=== PATIENT | male | born 1940 | race Two or more races ===

== ENCOUNTER → 2024-12-07 | Outpatient (CLI) | payer OTHER, MEDICAID, SELFPAY ==
[2024-12-07 08:10] LABS: Collection Type, Urine Clean Catch
[2024-12-07 08:36] LABS: Bilirubin,Urine Negative (Negative); Blood,Urine Negative (Negative); Clarity,Urine Clear (Clear/Hazy); Color,Urine Yellow (Lt Yel-Yel); Glucose, Urine Negative (Negative); Ketones,Urine Negative (Negative); Leukocyte Esterase,Urine Negative (Negative); Nitrite,Urine Negative (Negative); PH,Urine 6.5 (5.0-7.0); Protein,Urine Negative (Neg - Trace); RBC,Urine 1 /hpf (0-3); Specific Gravity,Urine 1.015 (1.001-1.035); Squamous Epithelial Cell,Urine < 1 /hpf (0-5); Urobilinogen,Urine Negative mg/dL (0.0-1.0); WBC,Urine 4 /hpf (0-5)
[2024-12-07 08:43] LABS: Alanine Aminotransferase 39 U/L (10-49); Albumin, Serum 4.1 gm/dL (3.4-4.8); Albumin/Globulin Ratio 1.5 (1.2-2.2); Alkaline Phosphatase 93 U/L (46-116); Anion Gap 9 (7-16); Aspartate Amino Transferase 35 U/L (0-34); BUN/Creatinine Ratio 9 Ratio (12-20); Bilirubin,Total 1.1 mg/dL (0.3-1.2); Blood Urea Nitrogen 9 mg/dL (9-23); Calcium 8.8 mg/dL (8.3-10.6); Calcium (Corrected) 8.8 mg/dL (8.5-10.1); Carbon Dioxide 27.3 mMol/L (20.0-31.0); Cardiac Risk Estimate 3.3 RATIO (4.0-6.7); Chloride 106 mMol/L (98-107); Cholesterol 124 mg/dL (132-200); Globulin 2.8 gm/dL (2.3-3.5); Glucose 132 mg/dL (74-106); HDL Cholesterol 38 mg/dL (40-60); LDL Cholesterol,Calculated 51 mg/dL (0-130); Osmolality,Calculated 283 (275-295); Potassium 4.1 mMol/L (3.4-5.1); Sodium 142 mMol/L (136-145); Thyroid Stimulating Hormone 1.15 uIU/mL (0.55-4.78); Total Protein 6.9 gm/dL (5.7-8.2); Triglycerides 173 mg/dL (30-150); eGFR > 60 See Note
[2024-12-07 08:44] LABS: Basophils % (Auto) 1 % (0-2.5); Eosinophils # (Auto) 0.3 Thou/mm3 (0.0-0.5); Eosinophils % (Auto) 5 % (0-10); Hematocrit 47.8 % (41.0-53.0); Hemoglobin 16.9 g/dL (13.5-16.0); Immature Granulocytes % (Auto) 0 % (0-0); Immature Granulocytes Auto 0.01 Thou/mm3 (0.00-0.00); Lymphocytes # (Auto) 1.8 Thou/mm3 (1.0-4.8); Lymphocytes % (Auto) 24 % (10-50); Mean Corpuscular HGB Conc 35.4 g/dl (31.0-37.0); Mean Corpuscular Volume 93 fL (80-100); Monocytes # (Auto) 0.7 Thou/mm3 (0.0-0.8); Monocytes % (Auto) 9 % (0-12); Neutrophils # (Auto) 4.6 Thou/mm3 (1.8-7.7); Neutrophils % (Auto) 61 % (37-80); Nucleated Red Blood Cell % 0 /100 WBC (0); Platelet Count 160 Thou/mm3 (140-440); RDW Standard Deviation 40.4 fL (35.1-43.9); Red Blood Count 5.12 Miln/mm3 (4.50-5.90); White Blood Count 7.4 Thou/mm3 (3.8-10.6)
[2024-12-07 08:44] LABS: Creatinine MALB Rnd Ur 159 mg/dL (30-125); Microalbumin Creat Ratio 2 mg/gCrea (<30); Microalbumin, Random Urine 3 mg/L (0-300)
[2024-12-07 08:56] LABS: Glucose Estimated Average 131 mg/dL (80-131); Hemoglobin A1C 6.2 % Hgb (4.8-6.0)
== END | disposition home or self-care (01) ==
PROVIDERS: PCP Family Medicine; Referring Provider Family Medicine; Visit Provider Family Medicine
DX: Z00.00 Encounter for general adult medical examination without abnormal findings (principal); E11.9 Type 2 diabetes mellitus without complications; K70.0 Alcoholic fatty liver; E78.2 Mixed hyperlipidemia
CPT/HCPCS: 36415; 80053; 80061; 81001; 82043; 82570; 83036; 84443; 85025

== ENCOUNTER 2024-12-15 09:35 | Emergency (ER) | payer OTHER, MEDICAID, SELFPAY ==
[2024-12-15 10:30] VITALS: BP 159/80; PULSE 93; RESP 16; TEMP 37.3; O2SAT 95; BMI 27.3
--- NOTE | 2024-12-15 10:43 | PD.EDRME ---
Rapid Medical Screening Exam RME Arrival date/time: 12/15/24 09:35 This is an 84-year-old male that comes in with complaints of difficulty urinating. Patient has urinary frequency, urgency, dysuria and oliguria. Patient states has been going on for a couple weeks now. Patient has a history of BPH hyperlipidemia. I have greeted and performed a focused initial assessment of this patient. Initial appropriate labs ordered at this time. A comprehensive ED assessment and evaluation of the patient and analysis of all test and completion of medical decision making process will be conducted by additional ED provider. Chief Complaint: Urogenital-Male Time Seen by Provider: 12/15/24 09:57 Vital signs: Vital Signs Temperature 99.2 F 12/15/24 10:30 Pulse Rate 93 12/15/24 10:30 Respiratory Rate 16 12/15/24 10:30 Blood Pressure 159/80 H 12/15/24 10:30 Pulse Oximetry (%) 95 12/15/24 10:30 Oxygen Delivery Method Room Air 12/15/24 10:30
[2024-12-15 11:11] LABS: Basophils % (Auto) 0 % (0-2.5); Eosinophils # (Auto) 0.2 Thou/mm3 (0.0-0.5); Eosinophils % (Auto) 2 % (0-10); Hematocrit 44.7 % (41.0-53.0); Hemoglobin 15.9 g/dL (13.5-16.0); Immature Granulocytes % (Auto) 0 % (0-0); Immature Granulocytes Auto 0.01 Thou/mm3 (0.00-0.00); Lymphocytes # (Auto) 1.3 Thou/mm3 (1.0-4.8); Lymphocytes % (Auto) 14 % (10-50); Mean Corpuscular HGB Conc 35.6 g/dl (31.0-37.0); Mean Corpuscular Volume 93 fL (80-100); Monocytes # (Auto) 0.9 Thou/mm3 (0.0-0.8); Monocytes % (Auto) 11 % (0-12); Neutrophils # (Auto) 6.5 Thou/mm3 (1.8-7.7); Neutrophils % (Auto) 73 % (37-80); Nucleated Red Blood Cell % 0 /100 WBC (0); Platelet Count 151 Thou/mm3 (140-440); Red Blood Count 4.82 Miln/mm3 (4.50-5.90)
[2024-12-15 11:29] LABS: Alanine Aminotransferase 35 U/L (10-49); Albumin, Serum 4.2 gm/dL (3.4-4.8); Albumin/Globulin Ratio 1.3 (1.2-2.2); Alkaline Phosphatase 103 U/L (46-116); Anion Gap 9 (7-16); Aspartate Amino Transferase 36 U/L (0-34); BUN/Creatinine Ratio 9 Ratio (12-20); Bilirubin,Total 1.1 mg/dL (0.3-1.2); Blood Urea Nitrogen 9 mg/dL (9-23); Calcium 8.8 mg/dL (8.3-10.6); Calcium (Corrected) 8.8 mg/dL (8.5-10.1); Carbon Dioxide 25.6 mMol/L (20.0-31.0); Chloride 103 mMol/L (98-107); Estimated Creatinine Clearance 51.9 mL/min (>60); Globulin 3.2 gm/dL (2.3-3.5); Glucose 179 mg/dL (74-106); Osmolality,Calculated 278 (275-295); Potassium 4.2 mMol/L (3.4-5.1); Sodium 138 mMol/L (136-145); Total Protein 7.4 gm/dL (5.7-8.2); eGFR > 60 See Note
[2024-12-15 11:58] VITALS: BP 154/81; PULSE 88; RESP 20; TEMP 37.4; O2SAT 93
--- NOTE | 2024-12-15 12:35 | PD.EDMALE ---
ED Male Genitalurinary RME/HPI General Chief complaint: Urogenital-Male Stated complaint: PAIN IN PENIS AND CAN'T PEE Time Seen by Provider: 12/15/24 09:57 Arrival date/time: 12/15/24 09:35 RME / HPI RME / HPI Narrative: 84-year-old male patient with significant history of enlarged prostate, was brought in by family for evaluation regarding dysuria and dribbling. Also complaining of painful sensation in the penis. This been ongoing for the last several weeks, getting worse. Denies any fever denies any vomiting denies any other complaints. Family is not sure if patient is taking his Flomax and terazosin daily. Related Data Home Medications ?Medication ?Instructions ?Recorded ?Confirmed atorvastatin 10 mg tablet 10 mg PO HS 03/27/21 07/21/22 pantoprazole 40 mg tablet,delayed 40 mg PO QDAY 03/27/21 07/21/22 release terazosin 2 mg capsule 4 mg PO QDAY 03/27/21 07/21/22 duloxetine 20 mg capsule,delayed 30 mg PO DAILY 04/02/21 07/21/22 release sprinkle celecoxib 200 mg capsule 200 mg PO DAILY PRN Back Pain 09/09/21 07/21/22 tamsulosin 0.4 mg capsule 0.4 mg PO QDAY 09/09/21 07/21/22 Previous Rx's ?Medication ?Instructions ?Recorded ibuprofen 600 mg tablet 600 mg PO TID PRN pain #30 tabs 01/02/23 diphenhydramine HCl 25 mg capsule 25 mg PO TID PRN Tardive 03/10/24 (Benadryl) dyskinesia symptoms #20 caps scopolamine base 1 mg over 3 days 1 mg topical .Q3days PRN dizziness 03/10/24 transdermal patch #4 ea meclizine 25 mg tablet 25 mg PO QID PRN dizziness #20 tabs 06/14/24 Allergies Allergy/AdvReac Type Severity Reaction Status Date / Time No Known Allergies Allergy Verified 12/15/24 09:37 Review of Systems Review of Systems Narrative Review of Systems: Review of system reviewed and within normal limits except mentioned in HPI ED Exam Narrative Physical exam: VITAL SIGNS: Reviewed. GENERAL APPEARANCE: Alert and interactive, follows commands, no acute distress, HEAD AND FACE: Non-traumatic. ENT: PERRL, pink conjunctivitis, eyelid no trauma, Mucous membrane moist. NECK: Supple, nontender, no nuchal rigidity. CHEST: No tenderness, no crepitus, no paradoxical movement, no retractions. LUNGS: Clear, well ventilated, symmetric, no rales, no wheezing, no ronchi, no stridor, good breath sounds bilaterally. HEART: Regular rate, regular rhythm, no murmur, no gallops. ABDOMEN: Soft, positive bowel sounds, nondistended, no guarding, nontender, no rebound, no masses, RECTAL: Deferred. GENITAL: Deferred. NEUROLOGICAL: Gross motor function intact sensory function intact, Appropriate for age. MUSCULOSKELETAL: low back nontender, full range of motion. EXTREMITIES: Nontender, full range of motion. SKIN: Color pink, dry, no rash, no lacerations, no abrasions, no contusions. LYMPHATICS: Deferred. Course Quality Measures none Orders Category Date Time Status Catheter [Urinary Catheter] QS Care 12/15/24 13:59 Active Giles to [place] Routine Care 12/15/24 12:34 Ordered Giles to Leg Bag Routine Care 12/15/24 12:34 Ordered CBC Stat Lab 12/15/24 11:01 Completed Comprehensive Metabolic Panel Stat Lab 12/15/24 11:01 Completed PSA [Prostate Specific Antigen] Stat Lab 12/15/24 11:01 Completed Urinalysis, C/S if Indicated Stat Lab 12/15/24 12:37 Completed ACETAMINOPHEN w/COD 300-30 [Tylenol w/Cod #3] Med 12/15/24 12:34 Discontinued 1 tab PO X1 ONE Vital Signs Vital signs: Vital Signs Temperature 99.2 F 12/15/24 10:30 Pulse Rate 93 12/15/24 10:30 Respiratory Rate 16 12/15/24 10:30 Blood Pressure 159/80 H 12/15/24 10:30 Pulse Oximetry (%) 95 12/15/24 10:30 Oxygen Delivery Method Room Air 12/15/24 10:30 Urogenital - Male MDM Narrative MDM Narrative:: 84-year-old male patient with significant history of enlarged prostate, was brought in by family for evaluation regarding dysuria and dribbling. Also complaining of painful sensation in the penis. This been ongoing for the last several weeks, getting worse. Denies any fever denies any vomiting denies any other complaints. Family is not sure if patient is taking his Flomax and terazosin daily. Giles catheter was inserted without any difficulty. Laboratory workup unremarkable no UTI except for PAC that is elevated at 144 Results discussed with the patient and family, advised him to closely follow-up with PCP and for referral to urologist in 1 to 2 days due to significantly elevated,which could be secondary to malignancy Patient data External records reviewed:: None Clinical information provided by:: patient and family Social determinants that could affect healthcare access:: none Patient has the following chronic illnesses:: History of BPH, How is presenting disease/condition affected by chronic disease/condition?: exacerbated by Evaluation data The following diagnostics were reviewed and interpreted by me:: lab results Lab and/or radiology exams considered but not ordered:: None Interpretation Summary: See results in MDM Medications / Prescriptions Medications or Prescriptions considered but not ordered:: None Medication administrations:: Medication Administration History Discontinued Medications Acetaminophen/Codeine Phosphate (Acetaminophen W/Cod 300-30 Tablet) 1 tab PO X1 ONE Stop: 12/15/24 12:35 Last Admin: 12/15/24 13:06 Dose: 1 tab Documented By: REESE Tylenol with codeine Consultations Consultation(s) initiated? (list below): No Diagnosis Urogenital Male Differential Diagnosis: urinary tract infection, prostatitis and acute retention of urine Most likely diagnosis given after review of the tests above:: Acute urinary retention, elevated PSA, enlarged prostate Admission Indicated Admission indicated?: not indicated Explain why admission is indicated or not indicated:: None Admission Request Was there a request for admission?: No Disposition Plan Disposition Plan: Discharge Discharge Attestation Discharge Attestation: The patient and all family members were given an opportunity to ask questions and understood the discharge instructions. Discharge instructions specifically effects, indications for sooner follow up or return to the emergency department, and the expected course of current diagnosis. Patient condition: Stable Discharge Plan Plan Patient Disposition: HOME (Self Care) Disposition Comment: stable Prescriptions/Referrals Prescriptions/Med Rec: No Action atorvastatin 10 mg Tablet 10 mg PO HS terazosin 2 mg Capsule 4 mg PO QDAY pantoprazole 40 mg Tablet,Delayed Release (Dr/Ec) 40 mg PO QDAY celecoxib 200 mg Capsule 200 mg PO DAILY PRN (Reason: Back Pain) tamsulosin 0.4 mg Capsule 0.4 mg PO QDAY duloxetine 20 mg Capsule, Delayed Rel Sprinkle 30 mg PO DAILY meclizine 25 mg tablet 25 mg PO QID MDD 100 mg PRN (Reason: dizziness) Qty: 20 0RF ibuprofen 600 mg tablet 600 mg PO TID PRN (Reason: pain) Qty: 30 0RF scopolamine base 1 mg over 3 days patch 3 day 1 mg topical .Q3days PRN (Reason: dizziness) Qty: 4 0RF diphenhydramine HCl [Benadryl] 25 mg capsule 25 mg PO TID PRN (Reason: Tardive dyskinesia symptoms) Qty: 20 0RF Referrals: Jaydon Odonnell MD [Primary Care Provider] - In 1 week Problem List Clinical Impression: Acute retention of urine, Elevated PSA, Enlarged prostate Patient/Caregiver Discharge Instructions Discharge Activity: activity as tolerated Education Materials: PSA Test, ED Urinary Retention, Male Additional Instructions: Thank you for the opportunity for serving you today. You are stable for discharged . You are advised to: Follow-up with your PCP in 1 to 2 days and as per referral to urologist to rule out malignancy of your prostate Return to ED for worsening of symptoms Increase oral fluids Print Language: Romanian Stand Alone Forms: Maria M Award Info., Patient Portal Info Letter PA/LEONEL Supervising Physician SHAYY/LEONEL Supervising Physician: MD Gaye
[2024-12-15 12:52] LABS: Collection Type, Urine Voided
[2024-12-15] MEDS: ACETAMINOPHEN w/COD 300-30 TABLET 1 TAB PO (13:06)
[2024-12-15 13:09] LABS: Bilirubin,Urine Negative (Negative); Blood,Urine Trace (Negative); Clarity,Urine Clear (Clear/Hazy); Color,Urine Yellow (Lt Yel-Yel); Culture Indicated,Urine Not Indicated; Glucose, Urine 2+ (Negative); Ketones,Urine Negative (Negative); Leukocyte Esterase,Urine Negative (Negative); Nitrite,Urine Negative (Negative); Protein,Urine 1+ (Neg - Trace); RBC,Urine 12 /hpf (0-3); Specific Gravity,Urine 1.024 (1.001-1.035); Squamous Epithelial Cell,Urine < 1 /hpf (0-5); Urobilinogen,Urine Negative mg/dL (0.0-1.0); WBC,Urine 3 /hpf (0-5)
[2024-12-15 13:53] LABS: Prostate Specific Antigen 144.43 ng/mL (0-4.00)
[2024-12-15 15:03] VITALS: BP 130/70; PULSE 85; RESP 18; TEMP 37.2; O2SAT 95
== END 2024-12-15 15:04 | disposition home or self-care (01) ==
PROVIDERS: Nurse Practitioner Family; Emergency Provider Family Medicine; PCP Family Medicine
DX: N40.1 Benign prostatic hyperplasia with lower urinary tract symptoms (principal); R33.8 Other retention of urine
CPT/HCPCS: 51702; 36415; 80053; 81001; 84153; 85025; 99283; A9270

== ENCOUNTER 2025-01-07 02:18 | Emergency (ER) | payer OTHER, SELFPAY ==
[2025-01-07 02:42] VITALS: BP 144/80; PULSE 79; RESP 16; TEMP 36.8; O2SAT 96
--- NOTE | 2025-01-07 02:54 | PD.EDMALE ---
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 Patient brought in by son. Reports change in Powers catheter in bag x 2 days ago. Denies pain, fever, hematuria, purulent discharge from urethra, abdominal pain, nausea, vomiting, confusion, abnormal behavior. Patient is on Flomax. Related Data Home Medications ?Medication ?Instructions ?Recorded ?Confirmed atorvastatin 10 mg tablet 10 mg PO HS 03/27/21 07/21/22 pantoprazole 40 mg tablet,delayed 40 mg PO QDAY 03/27/21 07/21/22 release terazosin 2 mg capsule 4 mg PO QDAY 03/27/21 07/21/22 duloxetine 20 mg capsule,delayed 30 mg PO DAILY 04/02/21 07/21/22 release sprinkle celecoxib 200 mg capsule 200 mg PO DAILY PRN Back Pain 09/09/21 07/21/22 tamsulosin 0.4 mg capsule 0.4 mg PO QDAY 09/09/21 07/21/22 Previous Rx's ?Medication ?Instructions ?Recorded ibuprofen 600 mg tablet 600 mg PO TID PRN pain #30 tabs 01/02/23 diphenhydramine HCl 25 mg capsule 25 mg PO TID PRN Tardive 03/10/24 (Benadryl) dyskinesia symptoms #20 caps scopolamine base 1 mg over 3 days 1 mg topical .Q3days PRN dizziness 03/10/24 transdermal patch #4 ea meclizine 25 mg tablet 25 mg PO QID PRN dizziness #20 tabs 06/14/24 acetaminophen 300 mg-codeine 30 mg 1 tab PO TID PRN pain #20 tabs 12/15/24 tablet Allergies Allergy/AdvReac Type Severity Reaction Status Date / Time No Known Allergies Allergy Verified 12/15/24 09:37 Review of Systems Constitutional Constitutional: Denies fever(s) and Denies night sweats Cardiovascular Cardiovascular: Denies chest pain, Denies dyspnea and Denies leg edema Respiratory Respiratory: Denies cough, Denies dyspnea and Denies wheezing Gastrointestinal Gastrointestinal: Denies abdominal pain, Denies change in stool character and Denies vomiting Genitourinary Genitourinary: Denies dysuria, Denies flank pain, Denies hematuria, Denies oliguria, Denies penile discharge, Denies scrotal swelling and Reports other (Reports chronic indwelling catheter with leaking leg bag.) Musculoskeletal Musculoskeletal: Denies back pain, Denies numbness, Denies stiffness and Denies tingling Integumentary/Breasts Skin/Breast: Denies rash Neurologic Neurologic: Denies numbness and Denies tingling Allergic/Immunologic Allergic/Immunologic: Denies wheezing Past Medical History Past Medical History NEUROLOGIC: Negative Neurological Disorders or Seizures CARDIAC: Positive Cardiac Disorders and Hypercholesterolemia; Negative Congestive Heart Failure, Edema, Cellulitis or Varicose Veins RESPIRATORY: Negative Chronic Obstructive Pulmonary Disease (COPD), Tuberculosis, Pulmonary Embolism or Sleep Apnea GASTROINTESTINAL: Positive Gastrointestinal Disorders and Gastroesophageal Reflux Disease; Negative Hepatitis GENITOURINARY: Positive Genitourinary Disorders and Benign Prostatic Hyperplasia; Negative Renal Disease MUSCULOSKELETAL: Positive Musculoskeletal Disorders, Arthritis and Fractures ENT: Positive Cataracts ENDOCRINE: Negative Endocrine Disorders, Diabetes Mellitus Type 1 or Diabetes Mellitus Type 2 HEMATOLOGIC: Negative Blood Disorders OTHER HISTORY: Negative Hospitalization, Autoimmune Disease, Shingles, Falls, Blood Transfusions, Anesthesia Reactions, Chemotherapy, Radiation Therapy, MRSA, Chicken Pox, Measles, Mumps or Cancer Family History FAMILY HISTORY: Positive Family Cardiac Disorders; Negative Family Psychiatric Problems, Family Respiratory Disorders, Family Gastrointestinal Problems, Family Cancer, Family Surgery or Family Anesthesia Reaction Surgical History SURGICAL: Positive Eye Surgery and Abdominal Surgery; Negative Pacemaker Social History SMOKING STATUS: Never smoker SUBSTANCE USE: other (eats CBD gummies ) ED Exam General Limitations: Present language barrier General appearance: Present alert and in no apparent distress Head Head exam: Present atraumatic and normocephalic Eye Eye exam: Present normal appearance and EOMI; Absent scleral icterus ENT ENT exam: Present normal exam and mucous membranes moist Neck Neck exam: Present normal inspection and trachea midline Chest Chest inspection: Present normal inspection and symmetric chest wall rise Respiratory Respiratory exam: Present normal lung sounds bilaterally; Absent respiratory distress Cardiovascular Cardiovascular exam: Present regular rate and +S1 Abdominal Exam Abdominal exam: Present soft; Absent distention Expanded Exam exam: Present other (Indwelling Powers catheter with leg bag with approximately 200 cc of clear, yellow urine. No gross blood.); Absent penile swelling, lesions, erythema, balanitis or ulcerations Neurological Exam Neurological exam: Present alert Psychiatric Psychiatric exam: Present normal affect Skin Skin exam: Present warm and dry Course Quality Measures none Orders Category Date Time Status Po[place]rs to [place] Routine Care 01/07/25 02:54 Ordered Acetaminophen Tab [Tylenol Tab] Med 01/07/25 02:54 Discontinued 650 mg PO X1 ONE Vital Signs Vital signs: Vital Signs Temperature 98.2 F 01/07/25 02:42 Pulse Rate 79 01/07/25 02:42 Respiratory Rate 16 01/07/25 02:42 Blood Pressure 144/80 H 01/07/25 02:42 Pulse Oximetry (%) 96 01/07/25 02:42 Oxygen Delivery Method Room Air 01/07/25 02:42 Pulse ox 96% on room air, within normal limits. Procedures -ED Catheter Insertion (Urinary) Patient has the following: other (Powers catheter exchange.) Bladder Scan/US before Catheterization: No Results: successfully catheterized-immediate flow Patient Tolerated Procedure: well Complications: none Urogenital - Male MDM Narrative MDM Narrative:: 84-year-old male brought in by son for exchange of indwelling Powers catheter due to leaking leg bag. 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 Catheter exchange in the department by nursing staff with no reported complications. Immediate output at exchange of catheter therefore less concern for acute urinary retention. Labs and imaging considered not ordered given clinical presentation. Ultimately patient was discharged with plan for close follow-up with primary care within the week. Return precautions were provided. Patient data External records reviewed:: [facility] previous records Clinical information provided by:: patient Social determinants that could affect healthcare access:: none Patient has the following chronic illnesses:: Chronic obstructive prostatitis. How is presenting disease/condition affected by chronic disease/condition?: caused by Evaluation data The following diagnostics were reviewed and interpreted by me:: other (specify) Lab and/or radiology exams considered but not ordered:: Considered not ordered. Interpretation Summary: Considered not ordered. Medications / Prescriptions Medications or Prescriptions considered but not ordered:: Considered not ordered. Medication administrations:: Medication Administration History Discontinued Medications Acetaminophen (Acetaminophen 325 Mg Tablet) 650 mg PO X1 ONE Stop: 01/07/25 02:55 Last Admin: 01/07/25 03:26 Dose: 650 mg Documented By: Considered not ordered. Consultations Consultation(s) initiated? (list below): No Diagnosis Urogenital Male Differential Diagnosis: urinary tract infection, urethritis, epididymitis, prostatitis, acute retention of urine and other Most likely diagnosis given after review of the tests above:: Powers catheter issue. Admission Indicated Admission indicated?: not indicated Admission Request Was there a request for admission?: No Disposition Plan Disposition Plan: Discharge Discharge Attestation Discharge Attestation: The patient and all family members were given an opportunity to ask questions and understood the discharge instructions. Discharge instructions specifically effects, indications for sooner follow up or return to the emergency department, and the expected course of current diagnosis. Patient condition: Stable Discharge Plan Plan Patient Disposition: HOME (Self Care) Disposition Comment: stable Prescriptions/Referrals Prescriptions/Med Rec: No Action atorvastatin 10 mg Tablet 10 mg PO HS terazosin 2 mg Capsule 4 mg PO QDAY pantoprazole 40 mg Tablet,Delayed Release (Dr/Ec) 40 mg PO QDAY celecoxib 200 mg Capsule 200 mg PO DAILY PRN (Reason: Back Pain) tamsulosin 0.4 mg Capsule 0.4 mg PO QDAY duloxetine 20 mg Capsule, Delayed Rel Sprinkle 30 mg PO DAILY meclizine 25 mg tablet 25 mg PO QID MDD 100 mg PRN (Reason: dizziness) Qty: 20 0RF acetaminophen-codeine 300-30 mg tablet 1 tab PO TID PRN (Reason: pain) Qty: 20 0RF ibuprofen 600 mg tablet 600 mg PO TID PRN (Reason: pain) Qty: 30 0RF scopolamine base 1 mg over 3 days patch 3 day 1 mg topical .Q3days PRN (Reason: dizziness) Qty: 4 0RF diphenhydramine HCl [Benadryl] 25 mg capsule 25 mg PO TID PRN (Reason: Tardive dyskinesia symptoms) Qty: 20 0RF Referrals: No Primary/Family,Physician [Primary Care Provider] - In 1 week Problem List Clinical Impression: Complication of Powers catheter Impression comment: Continue take Flomax daily as prescribed. Follow-up with primary care within the next week for reevaluation. Return to the ED if your symptoms worsen or change. Patient/Caregiver Discharge Instructions Education Materials: Discharge Instructions Caring ..., ED Powers Catheter, Care Print Language: Hong Konger Stand Alone Forms: Maria M Award Info., Patient Portal Info Letter PA/EDITING CLERK Supervising Physician PA/EDITING CLERK Supervising Physician: Dr. Leon
[2025-01-07] MEDS: ACETAMINOPHEN 325 MG TABLET 650 MG PO (03:26)
== END 2025-01-07 03:35 | disposition home or self-care (01) ==
PROVIDERS: Emergency Provider Emergency Medicine
DX: T83.038A Leakage of other urinary catheter, initial encounter (principal); Y84.6 Urinary catheterization as the cause of abnormal reaction of the patient, or of later complication, without mention of misadventure at the time of the procedure; N41.1 Chronic prostatitis
CPT/HCPCS: 99281; A9270

== ENCOUNTER → 2025-02-05 | Outpatient (CLI) | payer OTHER, MEDICAID, SELFPAY ==
[2025-02-05 09:39] LABS: Prostate Specific Antigen 11.67 ng/mL (0-4.00)
== END | disposition home or self-care (01) ==
LOC: COPL 08:04
PROVIDERS: PCP Family Medicine; Referring Provider Surgery; Visit Provider Surgery
DX: N40.1 Benign prostatic hyperplasia with lower urinary tract symptoms (principal)
CPT/HCPCS: 36415; 84153

== ENCOUNTER → 2025-03-12 | Outpatient (CLI) | payer OTHER, MEDICAID, SELFPAY ==
--- NOTE | 2025-03-12 09:51 | XR_ITS ---
Examination: Abdomen AP single view Technique: AP portable supine abdomen, single view Exam date and time: March 12, 2025 1015 hours INDICATIONS: Abdominal distention this week. FINDINGS: Moderate stool throughout the colon No obstruction No free air IMPRESSION: Moderate stool throughout the colon
== END | disposition home or self-care (01) ==
LOC: CDIM 09:17
PROVIDERS: PCP Family Medicine; Referring Provider Family Medicine; Visit Provider Family Medicine
DX: K59.00 Constipation, unspecified (principal)
CPT/HCPCS: 74018

== ENCOUNTER → 2025-06-10 | Outpatient (CLI) | payer OTHER, MEDICAID, SELFPAY ==
[2025-06-10 09:02] LABS: Prostate Specific Antigen 9.10 ng/mL (0-4.00)
== END | disposition home or self-care (01) ==
PROVIDERS: PCP Family Medicine; Referring Provider Surgery; Visit Provider Surgery
DX: R97.20 Elevated prostate specific antigen [PSA] (principal)
CPT/HCPCS: 36415; 84153

== ENCOUNTER → 2025-07-09 | Outpatient (CLI) | payer OTHER, MEDICAID, SELFPAY ==
--- NOTE | 2025-07-09 | XR_ITS ---
EXAMINATION: PA lateral chest 2 views TECHNIQUE: Upright PA and lateral chest 2 views Date and time: July 09, 2025, 0751 hours, comparison 06/14/2024 INDICATIONS: Upper back and left shoulder pain a few months FINDINGS: Normal heart size. No pneumonia or pulmonary edema. Prominent osteopenia. Chronic osteoporotic compressions dorsal vertebral bodies, prominent thoracic spondylosis IMPRESSION: No active disease
== END | disposition home or self-care (01) ==
PROVIDERS: PCP Family Medicine; Referring Provider Family Medicine; Visit Provider Family Medicine
DX: M54.6 Pain in thoracic spine (principal); M25.512 Pain in left shoulder; R05.3 Chronic cough
CPT/HCPCS: 71046

== ENCOUNTER 2025-07-19 06:05 | Day surgery (SDC) | payer OTHER, SELFPAY ==
--- NOTE | 2025-07-17 07:00 | EKG_ITS ---
[facility] Test Date: 2025-07-17 Pat Name: MAGO STRANGE Department: Room: - Gender: Male Coding Compliance Auditor: NADEEN : 1940 Requested By: Thom Hobbs Order Number: [id number] Reading MD: Thom Hobbs Measurements Intervals [place]betts Rate: 75 P: 20 OR: 187 QRS: -14 QRSD: 88 T: 60 QT: 380 QTc: 424 Interpretive Statements SINUS RHYTHM Compared to ECG 06/14/2024 12:08:35 First degree AV block no longer present /store/S0/[id number]/ecg/[id number].pdf
[2025-07-17 08:49] VITALS: BMI 29.0
[2025-07-17 09:44] LABS: Collection Type, Urine Clean Catch
[2025-07-17 09:50] LABS: Bilirubin,Urine Negative (Negative); Blood,Urine Negative (Negative); Clarity,Urine Clear (Clear/Hazy); Color,Urine Yellow (Lt Yel-Yel); Glucose, Urine Negative (Negative); Ketones,Urine Negative (Negative); Leukocyte Esterase,Urine Negative (Negative); Nitrite,Urine Negative (Negative); PH,Urine 6.0 (5.0-7.0); Protein,Urine Negative (Neg - Trace); RBC,Urine 1 /hpf (0-3); Specific Gravity,Urine 1.022 (1.001-1.035); Squamous Epithelial Cell,Urine 1 /hpf (0-5); Urobilinogen,Urine Negative mg/dL (0.0-1.0); WBC,Urine 1 /hpf (0-5)
[2025-07-17 09:53] LABS: Basophils # (Auto) 0.1 Thou/mm3 (0.0-0.2); Basophils % (Auto) 1 % (0-2.5); Eosinophils # (Auto) 0.2 Thou/mm3 (0.0-0.5); Eosinophils % (Auto) 4 % (0-10); Hematocrit 48.1 % (41.0-53.0); Hemoglobin 16.9 g/dL (13.5-16.0); Immature Granulocytes Auto 0.01 Thou/mm3 (0.00-0.00); Lymphocytes # (Auto) 2.2 Thou/mm3 (1.0-4.8); Lymphocytes % (Auto) 34 % (10-50); Mean Corpuscular HGB Conc 35.1 g/dl (31.0-37.0); Mean Corpuscular Hemoglobin 33.1 pg (25.0-35.0); Mean Corpuscular Volume 94 fL (80-100); Monocytes # (Auto) 0.6 Thou/mm3 (0.0-0.8); Monocytes % (Auto) 9 % (0-12); Neutrophils # (Auto) 3.3 Thou/mm3 (1.8-7.7); Neutrophils % (Auto) 52 % (37-80); Nucleated Red Blood Cell # 0.00 Thou/mm3 (0.00-0.00); Nucleated Red Blood Cell % 0 /100 WBC (0); RDW Standard Deviation 41.3 fL (35.1-43.9); Red Blood Count 5.11 Miln/mm3 (4.50-5.90); White Blood Count 6.3 Thou/mm3 (3.8-10.6)
[2025-07-17 10:07] LABS: Alanine Aminotransferase 47 U/L (10-49); Albumin, Serum 4.7 gm/dL (3.4-4.8); Albumin/Globulin Ratio 1.6 (1.2-2.2); Alkaline Phosphatase 75 U/L (46-116); Anion Gap 11 (7-16); Aspartate Amino Transferase 60 U/L (0-34); BUN/Creatinine Ratio 8 Ratio (12-20); Bilirubin,Total 1.1 mg/dL (0.3-1.2); Blood Urea Nitrogen 9 mg/dL (9-23); Calcium 9.3 mg/dL (8.3-10.6); Calcium (Corrected) 9.3 mg/dL (8.5-10.1); Carbon Dioxide 26.3 mMol/L (20.0-31.0); Chloride 104 mMol/L (98-107); Creatinine (Component) 1.1 mg/dL (0.6-1.3); Estimated Creatinine Clearance 46.8 mL/min (>60); Globulin 3.0 gm/dL (2.3-3.5); Glucose 135 mg/dL (74-106); Osmolality,Calculated 281 (275-295); Potassium 4.2 mMol/L (3.4-5.1); Sodium 141 mMol/L (136-145); Total Protein 7.7 gm/dL (5.7-8.2); eGFR > 60 See Note
[2025-07-17 15:46] LABS: Platelet Count 98 Thou/mm3 (140-440)
--- NOTE | 2025-07-18 12:48 | ESHP_ITS ---
RE: MAGO STRANGE : 1940 DATE OF ADMISSION: 07/18/2025 HISTORY OF PRESENT ILLNESS: The patient is an 84-year-old gentleman with a history of elevated PSA. His PSA is high and is 11.67. He takes tamsulosin, finasteride, and terazosin. Repeat PSA has been 9.10. His serum creatinine is normal. The patient had a Giles catheter. The Giles catheter was removed. He is now scheduled to have cystoscopy and transrectal prostatic ultrasound with ultrasound guided prostatic needle biopsy. PAST SURGICAL HISTORY: Included hernia operation. SOCIAL HISTORY: He has 10 kids. ALLERGIES: NONE KNOWN. PAST MEDICAL HISTORY: There is no history of diabetes mellitus, no history of hypertension. MEDICATIONS: He takes: 1. Terazosin. 2. Aricept. 3. Tamsulosin. 4. Finasteride. PHYSICAL EXAMINATION: Clinical examination reveals HEENT: Normal. Neck: Supple. Lungs: Clear. Cardiovascular: Heart sounds are normal. Abdomen: Soft without any organomegaly. No guarding. No rigidity. Extremities: Normal. Phallus normal. Testes are down in scrotum. Rectal examination reveals moderately enlarged prostate without any hard nodules. IMPRESSION: 1. Prostatism. 2. Prostatic obstruction. 3. History of urinary retention. 4. Elevated PSA which is now 9.10. PLAN: Cystoscopy and transrectal prostatic ultrasound with ultrasound guided prostatic needle biopsy. Planned procedure risks and complications have been discussed with the patient. The patient understood them and agreed to proceed. DT: 11:56:06 TT: 12:38:00 Ref: [id number] - TID: [id number]
[2025-07-19] VITALS (7 sets, daily range): BP systolic 114–154; BP diastolic 76–100; PULSE 67–79; RESP 18–24; TEMP 36.2–37; O2SAT 94–99; BMI 29.0
--- NOTE | 2025-07-19 07:21 | SUR.PREOP ---
Patient expressed gratitude for prayer before their procedure.
--- NOTE | 2025-07-19 08:30 | XR_ITS ---
EXAMINATION: Transrectal prostate sonography Date and time: July 19, 2025, 0840 hours INDICATIONS: Transrectal prostate sonographic images for prostate biopsies today TECHNIQUE AND FINDINGS: Multiple transrectal sonographic images prostate for guidance for prostate biopsies today Prostate volume 62.62 cc IMPRESSION: Transrectal prostate sonographic images for prostate biopsies today
--- NOTE | 2025-07-19 09:00 | SUR.PHASEII ---
pt received from OR in recovery bay in 1. pt asleep but responds to voice, breathing unlabored on oxymask 4l. v/s stable. report received from Dr. Patel and Juaquin Buckner.
--- NOTE | 2025-07-19 09:18 | SUR.PHASEII ---
pt able to tolerate oral fluids without difficulty swallowing or nausea/vomiting.
--- NOTE | 2025-07-19 09:37 | ESOP_ITS ---
RE: MAGO STRANGE : 1940 DATE OF OPERATION: 07/19/2025 PREOPERATIVE DIAGNOSES: Prostatism, prostatic obstruction, elevated PSA of 9.10. POSTOPERATIVE DIAGNOSES: Prostatism, prostatic obstruction, elevated PSA of 9.10. PROCEDURE PERFORMED: Cystoscopy, urethral dilatation, transrectal prostatic ultrasound with ultrasound-guided prostatic needle biopsy. ANESTHESIA: Monitored anesthesia by Dr. Patel. INDICATION: Patient is 84-year-old gentleman with elevated PSA of 9.10. He had history of urinary retention in the past. He is now on tamsulosin and finasteride. Rectally, he has a moderately enlarged smooth prostate without any hard nodules. He is now scheduled to have cystoscopy and transrectal prostatic ultrasound with ultrasound-guided prostatic needle biopsy. Planned procedure, risks, and complications have been discussed with the patient. Patient has understood them and agrees to proceed. DESCRIPTION OF PROCEDURE: After the patient was brought to the operating table under adequate monitored anesthesia by Dr. Patel, patient was placed in the dorsal lithotomy position. Parts were prepped and draped in the usual fashion. Cystoscopy was then carried out which revealed a little narrow external urethral meatus which was dilated. Urethra is open. Prostatic urethra was visualized which revealed bilobed moderately enlarged prostate. Scope was introduced into the bladder. Residual urine is about 4 ounces, yellow and clear, and was sent for culture and sensitivity examination. There are no intravesical stones or tumors. Bladder mucosa is moderately trabeculated. Scope was withdrawn. Urethra was dilated. Patient was then turned in left lateral position. Transrectal prostatic ultrasound was then carried out. Biopsies were obtained from both lobes using ultrasound guidance. Prostatic volume was measured at 62.6 cubic cm. Patient tolerated the entire procedure well and left the room in good condition. DT: 09:08:37 TT: 09:36:00 Ref: [id number] - TID: [id number]
--- NOTE | 2025-07-19 10:00 | SUR.PHASEII ---
pt awake and alert, breathing unlabored on room air. v/s stable. pt able to ambulate to wheelchair with steady gait. d/c instructions given with zaina Piper in room using belt puncher Gisele Buchanan, all questions answered. pt d/c via wheelchair with all belongings.
== END 2025-07-19 10:00 | disposition home or self-care (01) ==
PROVIDERS: Anesthesiology; PCP Family Medicine; Referring Provider Surgery; Visit Provider Surgery
PROC: (CPT 55700; principal; 2025-07-19 08:30)
PROC: 0TJB8ZZ Inspection of Bladder, Via Natural or Artificial Opening Endoscopic (ICD-10-PCS; CPT 52000; 2025-07-19 08:30)
DX: N40.1 Benign prostatic hyperplasia with lower urinary tract symptoms (principal); N13.8 Other obstructive and reflux uropathy; R33.8 Other retention of urine; Z01.810 Encounter for preprocedural cardiovascular examination; N35.811 Other urethral stricture, male, meatal
CPT/HCPCS: 52281; 55700; 36415; 76942; 80053; 81001; 85025; 87086; 93005; A4217; A4649; J0694; J2704; J3010